=== PATIENT | male | born 1970 | race African-American/Black ===

== ENCOUNTER 2017-07-28 10:27 | Day surgery (SDC) | payer OTHER ==
[~2017-07-28] VITALS: Ht 180.3 cm; Wt 77.7 kg
[2017-07-28] VITALS (12 sets, daily range): BP systolic 105–165; BP diastolic 68–93; PULSE 57–74; RESP 12–19; Ht 180.3 cm; Wt 77.7 kg
[~2017-07-28 10:27] MED LIST: CEFAZOLIN 2 GM/50 ML (PMX) 50 ML IVPB SCH; DOCU-144 PO; SOD CHLORIDE 0.9% 1,000 ML IV SCH
[2017-07-28] MEDS ORDERED: NEOSTIGMINE 3 MG/3 ML SYRINGE ONE (11:34)
[2017-07-28] MEDS ORDERED: PROPOFOL 20 ML ONE (11:34)
[2017-07-28] MEDS ORDERED: CEFAZOLIN 1 GM INJ ONE (11:34)
[2017-07-28] MEDS ORDERED: GLYCOPYRROLATE 0.4 MG INJ ONE (11:34)
[2017-07-28] MEDS ORDERED: ROCURONIUM 50 MG INJ ONE (11:34)
[2017-07-28] MEDS ORDERED: FENTAnyl 50 MCG/ML VIAL ONE (11:35)
[2017-07-28] MEDS ORDERED: ONDANSETRON 4 MG INJ ONE (11:36)
[2017-07-28] MEDS ORDERED: DEXAMETHASONE 4 MG/ML 1 ML INJ ONE (11:36)
[2017-07-28] MEDS ORDERED: MIDAZOLAM 1 MG/ML 2 ML INJ ONE (11:36)
[2017-07-28] MEDS ORDERED: POLYMYXIN/BACITRACIN 1L IRRIG ONE (11:57)
[2017-07-28] MEDS ORDERED: BUPIVACAINE 0.25% (MPF) 30 ML INJ ONE (11:57)
[2017-07-28] MEDS ORDERED: SUGAMMADEX SODIUM 200 MG/2 ML VIAL IV ONE (12:55)
[2017-07-28] MEDS ORDERED: KETOROLAC 30 MG INJ ONE (12:59)
[2017-07-28] MEDS ORDERED: MEPERIDINE 25 MG INJ IV PRN (13:00)
[2017-07-28] MEDS ORDERED: ONDANSETRON 4 MG INJ IV PRN (13:00)
[2017-07-28] MEDS ORDERED: hydrALAzine 20 MG INJ IV PRN (13:00)
[2017-07-28] MEDS ORDERED: MIDAZOLAM 1 MG/ML 2 ML INJ IV PRN (13:00)
[2017-07-28] MEDS ORDERED: IPRATROPIUM (NEB) 0.5 MG/2.5 ML AMP HHN PRN (13:00)
[2017-07-28] MEDS ORDERED: TRIMETHOBENZAMIDE 100 MG/ML VIAL IM PRN (13:00)
[2017-07-28] MEDS ORDERED: HYDROmorphONE (0.2 MG/ML) 10ML SYG IV PRN ×3 (13:00)
[2017-07-28] MEDS ORDERED: FENTAnyl 50 MCG/ML VIAL IV PRN ×3 (13:00)
[2017-07-28] MEDS ORDERED: DIPHENHYDRAMINE 50 MG INJ IV PRN (13:00)
[2017-07-28] MEDS ORDERED: ALBUTEROL 0.083% (NEB) 2.5 MG/3 ML AMP HHN PRN (13:00)
[2017-07-28] MEDS ORDERED: OXYCODONE/ACETAMINOPHEN (5/325) TAB PO PRN ×2 (13:00)
[2017-07-28] MEDS ORDERED: LABETALOL HCL 20MG INJ IV PRN (13:00)
[2017-07-28] MEDS ORDERED: EPHEDrine SULFATE 50 MG/5 ML SYG IV PRN (13:00)
--- NOTE | 2017-07-28 13:08 | OPR ---
Date/Time of Note Date/Time of Note DATE: 07/28/17 TIME: 13:05 Operative Report Procedure Date: Jul 28, 2017 Preoperative Diagnosis recurrent incarcerated ventral hernia Postoperative Diagnosis same Operation/Procedure Performed 1. open recurrent incarcerated ventral hernia repair 2. ventralight ST 10x15 cm mesh implantation into the abdomen 3. lysis of adhesions 4. therapeutic injection of subcutaneous local anesthesia Surgeon see signature line Digital Field Service Technician none Anesthesia Type: general Estimated Blood Loss: 0 - 10 ml's Transfusion none Specimen none Grafts/Implants none Complications none Pt Condition Post Procedure: stable Indications This is a 47-year-old male with a recurrent incarcerated ventral hernia. He requests surgical repair. Risks alternatives benefits and personnel were discussed with the patient. Patient expressed understanding and consents to the operation. Procedure Description Patient is taken to the OR and prepped and draped in usual sterile fashion. Surgical timeout was performed. IV antibiotics given. Midline incision is made with a 10 blade over the ventral hernia. Dissection cautery was carried onto the hernia and the hernia contents are reduced manually after an extensive lysis of adhesions from the surrounding the defect. Fascial edges were then freshened and identified. Underlay mesh with 10 x [address] was cut to fit. This mesh was then secured in place with interrupted #1 Prolenes. The fascial defect was then primary closed with #1 Vicryl. The surgical site was hemostatic. Skin was closed using skin danii. Therapeutic subcutaneous local anesthesia was injected throughout the incision site. Linda CARREON Jul 28, 2017 13:08
[2017-07-28] MEDS ORDERED: HYDROCODONE/APAP (5/325) TAB PO ONE (13:30)
== END 2017-07-28 15:15 | disposition home or self-care (01) ==
LOC: SDS 10:27
PROVIDERS: ATTEND Surgery
DX: K43.2 Incisional hernia without obstruction or gangrene (principal); F17.210 Nicotine dependence, cigarettes, uncomplicated; F12.929 Cannabis use, unspecified with intoxication, unspecified
CPT/HCPCS: 49566; 49568; 88307; C1781; J0690; J1100; J1170; J1885; J2250; J2405; J3010; Z7512; Z7610; J2710